=== PATIENT | male | born 1950 | race African-American/Black ===

== ENCOUNTER 2020-12-24 15:47 | Emergency (ER) | payer OTHER ==
[~2020-12-24] VITALS: Ht 175.3 cm; Wt 72.6 kg
[~2020-12-24 15:47] MED LIST: ASPIRIN EC81 MG PO; BUMEX1 MG PO; BUSPAR5 MG PO; CEFTIN500 MG PO; COZAAR50 MG PO; DESYREL50 MG PO; DIOVAN160 MG PO; HCTZ25 MG PO; K-DUR20 MEQ PO; LACTINEX1 EACH PO; LASIX20 MG PO; NORVASC5 MG PO; PEPCID AC20 MG PO; PREDNISONE 10MG10 MG PO; PROVENTIL HFA6.7 GM PO; TOPROL XL 25MG25 MG PO; TOPROL XL 50 MG50 MG PO; VENTOLIN HFA IN18 GM INH; VICODIN 10/3251 EACH PO; ZITHROMAX250 MG PO; ZOLOFT50 MG PO
[2020-12-24 16:52] LABS: BASOPHIL 0.5 % (0-2); EOSINOPHIL 1.1 % (0-7); HCT 35.5 % (42.0-52.0); HGB 11.1 g/dl (13.2-18.0); LYMPHOCYTE 21.1 % (15-48); MCH 32.7 pg (25.0-31.0); MCHC 31.3 g/dL (32.0-36.0); MCV 104.7 fL (78.0-100.0); MONOCYTE 9.7 % (0-12); MPV 10.3 fL (6.0-9.5); NEUTROPHIL 67.3 % (41-80); NRBC 0; PLT 189 K/uL (150-400); RBC 3.39 M/uL (4.70-6.00); RDW 12.9 % (11.5-14.0); WBC 7.8 K/uL (4.0-10.5)
[2020-12-24 17:03] LABS: INR 1.01 (0.9-1.2); PROTHROMBIN TIME 12.7 SECONDS (11.8-13.4)
[2020-12-24 17:11] LABS: ALBUMIN 3.8 g/dL (3.4-5.0); BILIRUBIN - TOTAL 0.8 mg/dL (0.2-1.0); BUN/CREAT RATIO (CALC) 17.7 RATIO; CREATININE 1.24 mg/dL (0.67-1.17); GLOBULIN (CALCULATION) 4.9 g/dL; POTASSIUM 4.6 mmol/L (3.5-5.1); TOTAL PROTEIN 8.7 g/dL (6.4-8.2)
[2020-12-24 17:20] LABS: CKMB 1.4 ng/mL (0.0-3.6)
== END 2020-12-24 18:00 | disposition other institution (70) ==
LOC: FER 15:47
PROVIDERS: Internal Medicine
DX: I63.9 Cerebral infarction, unspecified (principal); R01.1 Cardiac murmur, unspecified; D64.9 Anemia, unspecified; R29.712 NIHSS score 12; I10 Essential (primary) hypertension; N17.9 Acute kidney failure, unspecified; Z86.73 Personal history of transient ischemic attack (TIA), and cerebral infarction without residual deficits
CPT/HCPCS: 36415; 70450; 71045; 80053; 80061; 82550; 82553; 83874; 84484; 85025; 85610; 85730; 93005; G0480